=== PATIENT | male | born 1955 | race Caucasian/White ===

== ENCOUNTER 2024-12-04 09:00 | Day surgery (SDC) | payer MEDICARE ==
[2024-12-04] MEDS: Lactated Ringers 1,000 ML IV SCH (09:50)
[2024-12-04] MEDS ORDERED: fentaNYL 50 MCG/ML SDV ONE (10:16)
[2024-12-04] MEDS ORDERED: Propofol 200 MG/20 ML SDV ONE (10:16)
== END 2024-12-04 13:07 | disposition home or self-care (01) ==
LOC: JP.SDS 09:00
PROVIDERS: ATTEND Surgery
DX: Z12.11 Encounter for screening for malignant neoplasm of colon (principal); D12.5 Benign neoplasm of sigmoid colon; K63.5 Polyp of colon; F41.9 Anxiety disorder, unspecified; F17.210 Nicotine dependence, cigarettes, uncomplicated; Z79.899 Other long term (current) drug therapy
CPT/HCPCS: 00811-QZ; 88305; J2704; J3010; J7120